=== PATIENT | male | born 2000 | race Hispanic/Latino ===

== ENCOUNTER 2025-01-20 19:40 | Emergency (ER) | payer SELFPAY ==
[2025-01-20 19:42] VITALS: BP 130/92; PULSE 91; RESP 15; TEMP 36.6; O2SAT 97; BMI 47.4
--- NOTE | 2025-01-20 21:21 | EDS_ITS ---
HPI History of Present Illness Chief Complaint: Headache Informant: patient Narrative Narrative: Formal Monegasque interpretation service used. 1 week history noting bumps behind his neck. Last day increasing pain unable to sleep on his back. He had a fever Monday. Does not see a doctor. No allergies. No past medical history. No history of similar. Last haircut was a month ago. Denies any bumps afterwards. PFSH PFSH Medical History no medical history Home Medications ?Medication ?Instructions ?Recorded ?Last Taken ?Type doxycycline monohydrate 100 mg 100 mg PO BID #20 CAPSU LES 01/20/25 Unknown Rx capsule ibuprofen 600 mg tablet 600 mg PO Q6H PRN PRN pain # 20 01/20/25 Unknown Rx TABLETS Allergy/AdvReac Type Severity Reaction Status Date / Time No Known Allergies Allergy Verified 01/20/25 19:42 Social History Smoking Status: Never smoker ROS ROS ED Constitutional Constitutional ED: Reports fever(s); Denies chills or sweats ENT ENT ED: Denies sore throat Cardiovascular Cardiovascular: Denies chest pain, leg edema, palpitations or racing heartbeat Respiratory/Chest Respiratory/Chest: Denies cough, dyspnea or dyspnea on exertion Gastrointestinal Gastrointestinal: Denies abdominal pain, diarrhea, nausea or vomiting Genitourinary Genitourinary ED: Denies dysuria, hematuria or urinary frequency Musculoskeletal Musculoskeletal: Denies back pain, extremity pain or neck pain Integumentary Reports abscess; Denies rash or wounds Neurologic Neurologic: Denies headache(s), paresthesias or weakness EXAM Physical Exam Const Vital Signs: 01/20/25 19:42 Temperature 97.9 F Temperature Source Temporal Pulse Rate 91 Respiratory Rate 15 Blood Pressure 130/92 H Blood Pressure Mean 104 Pulse Ox 97 Oxygen Delivery Method Room Air Positive well nourished and well developed General Appearance ED: well developed and NAD HEENT Reports moist mucous membranes HEENT Narrative: Posterior scalp lower hairline 5 areas fluctuant or nodules tender palpation on there is additional smaller 1 where he pointed superiorly this gentle expression there was exudates. No vesicular lesions. frontal scalp noted some irritation however no fluctuance or nodules. normocephalic Eyes General Eye ED: Yes normal appearance of both eyes Neck full ROM Chest Wall Chest: Negative for tenderness Resp normal respiratory effort and normal air movement Effort and Inspection: symmetric chest movement; Negative for respiratory distress Cardio regular rate, regular rhythm and no murmurs Peripheral Pulses: pulses 2+ throughout GI normal to inspection, nondistended, normoactive bowel sounds and non-tender Palpation: Negative for guarding or rebound tenderness present Extremity normal to inspection General Extremety ED: Negative for edema or tenderness General Extremity: Negative for edema Neuro oriented x3 and no sensory deficits noted Sensorium / Orientation: awake and alert Skin Skin Narrative: See above MDM MDM MDM Narrative Medical decision making narrative: Interventions / MDM: Differential diagnosis: Folliculitis, abscess Diagnosis considered but do not suspect: N/A My EKG interpretation: N/A Imaging independently reviewed and interpreted by myself: N/A External documents reviewed: N/A Test considered but not ordered:N/A ED course: Nontoxic vital stable. With interpretation service discussed folliculitis with small abscess. There is tenderness in the area. Discussed I&D for which he agreed. This will be set up. Procedure note: Verbal consent. Normal sterile conditions. ChloraPrep used for cleansing the skin. Total of 4 cc 1% lidocaine used for local anesthetic of 5 areas. Stab incision with 11 they performed in all 5 areas there was bloody drainage no exudates. Bleeding controlled with pressure. Dressing placed by myself. Patient Toller procedure well. Initial exudates on first expression. I&D has had no exudative drainage. I will start him on doxycycline. Motrin also sent to his pharmacy in [place] per request of patient. Re-evaluation: stable Disposition discussed with patient/family/significant other: Patient Case discussed with consulting clinician: N/A This note was generated with [email or web address] dictation software. It may contain incorrect words, spelling, and punctuation that were not noted in checking the note before signing. Discharge Plan Triage Chief Complaint: Headache ED Provider: Corey Mcintosh Dx/Rx/DC Orders Clinical Impression: Abscess of skin of neck Instructions: ED Abscess Incision And Drainage Prescriptions: New doxycycline monohydrate 100 mg capsule 100 mg PO BID Qty: 20 0RF ibuprofen 600 mg tablet 600 mg PO Q6H PRN PRN (Reason: pain) Qty: 20 0RF Primary Care Provider: Care Physician,No Primary Referrals: Care Physician,No Primary [Primary Care Provider] - Denisa Abad [facility], DO [[facility]] - 1-2 Weeks Activity Restrictions/Additional Instructions: Status post incision and drainage. Take antibiotic as prescribed. Use ibuprofen as needed. Print Language: Monegasque Disposition Disposition: Home, Self Care Discharge Date/Time: 01/20/25 22:58
[2025-01-20] MEDS: Ibuprofen 600 MG Tablet PO (21:26)
[2025-01-20] MEDS: Lidocaine 1% (20 ml mdv) 20 ML Vial INFILT (21:27)
[2025-01-20] MEDS: Doxycycline 100 MG CAPSULE PO (22:47)
== END 2025-01-20 22:58 | disposition home or self-care (01) ==
PROVIDERS: Emergency Provider Emergency Medicine; Referring Provider Emergency Medicine; Visit Provider Emergency Medicine
DX: L02.11 Cutaneous abscess of neck (principal)
CPT/HCPCS: 10060; 99285

== ENCOUNTER 2025-08-20 22:10 | Emergency (ER) | payer SELFPAY ==
[2025-08-20 22:14] VITALS: BP 171/76; PULSE 97; RESP 18; TEMP 36.6; O2SAT 98
[2025-08-20 22:45] LABS: Mucous, Urine 0 SEEN /hpf (<or=2+)
--- NOTE | 2025-08-20 22:45 | CT_ITS ---
PROCEDURE: ABDOMEN/PELVIS W IV CONT ONLY 08/21/2025 REASON FOR EXAM: RLQ PAIN TECHNIQUE: Procedure Code: [id number] Modality: CT Procedure: ABDOMEN/PELVIS W IV CONT ONLY Coronal and Sagittal reconstruction series were provided. CONTRAST: isovue 370 VOLUME: 100 mL One or more dose reduction techniques were used (e.g., Automated exposure control, adjustment of the mA and/or kV according to patient size, use of iterative reconstruction technique. RADIATION DOSE SUMMARY: CTDI Vol 13.71 mGy DLP :713.64 mGycm COMPARISON: none FINDINGS: The appendix appears unremarkable. No right iliac inflammatory changes. The examined ascending colon, the transverse colon, the descending colon & small bowel loops are unremarkable. The stomach is unremarkable. Average sized liver showing homogenous parenchymal attenuation with fatty changes. No dilated intra or extra-hepatic biliary tracts. Gall bladder showing no radiodense calculi. No abnormal mural thickening. Clear surrounding fat planes with no sizeable collections. Normal appearance of the pancreas with clear surrounding fat planes. The spleen, adrenal glands, aorta and IVC are unremarkable. Both kidneys are of average size and showing smooth outline with preserved parenchymal thickness. No renal calculi. No hydronephrosis. Under distension of the urinary bladder showing minimal uniform mural thickening with no obvious masses. No obvious masses related to the pelvic viscera. No ascites or free air. No obvious pathologically enlarged lymph nodes. Scanned osseous structures show no osseous destruction. Scanned lung bases show no obvious abnormalities. CT/Abdomen/Pelvis W IV Cont ONLY IMPRESSION: No obvious appendicitis. Urinary bladder minimal mural thickening. Advise clinical and laboratory correl ation to exclude the possibility of cystitis. Hepatic steatosis. Reading [facility] [address]
[2025-08-20 22:51] LABS: Color, Urine Yellow (Yellow); Glucose, Dipstick Normal (Normal); Ketone-Dipstick Negative (Negative); Leukocyte Esterase-Dipstick Negative /ul (Negative); Nitrite-Dipstick Negative (Negative); Occult Blood-Urine Negative /ul (Negative); Protein-Dipstick 30 mg/dl (Negative); Specific Gravity, Urine 1.020 (1.002-1.030); Urine Bilirubin Dipstick Negative (Negative)
[2025-08-20 22:52] LABS: Hematocrit 39.4 % (40-54); Hemoglobin 13.0 g/dL (13.0-16.5); Immature Granulocytes Count 0.050 X10^3/uL (0.0-0.0); Mean Corp Hgb Conc 33.0 g/dL (32-36); Mean Corpuscular Volume 89.3 fL (80-94); Mean Platelet Vol. 9.0 fl (6.2-12.0); NRBC Flagged by Analyzer 0 % (0-5); Platelet Count 314 K/mm3 (150-450); RBC Distribution Width CV 13.9 % (11.6-14.6); RBC Distribution Width SD 45.1 fl (35.1-43.9); Red Blood Count 4.41 M/mm3 (4.6-6.2); White Blood Count 11.8 K/mm3 (4.4-11.0)
--- NOTE | 2025-08-20 22:59 | EDS_ITS ---
HPI History of Present Illness Chief Complaint: Abd Pain Narrative Narrative: Chief complaint and HPI: 24-year-old male with no significant past medical history other than morbid obesity presents for evaluation of right lower quadrant abdominal pain. Patient is Azeri-speaking therefore official client delivery manager used. Onset of symptoms yesterday. States he had 1 episode of bright red blood with a bowel movement. He denies any fever, nausea, vomiting, diarrhea, constipation, dysuria. Has not taken anything for the pain. Review of systems: See HPI Medications: As listed on the chart Allergies: As listed on the chart PFSH: Per chart Vital signs: As listed on the chart. Reviewed. Physical exam: Gen: A&O x3, NAD Head: Normocephalic, atraumatic Eyes: No sclera icterus, conjunctiva clear ENT: Moist mucous membranes CV: RRR, no murmurs Resp: Lungs CTA BL, no w/r/c GI: Large body habitus, abd soft, non-distended, non-tender, no r/r/g Rectal: Normal external examination. No evidence of hemorrhoids or fissures. Normal tone and sensation. No masses, fluctuance, or tenderness. No pain out of proportion. Stool brown on gloved finger. : Significant tenderness Musc: Full ROM, no deformity Skin: Warm, dry Neuro: Alert, oriented, grossly intact, sensation intact Psych: Cooperative, appropriate mood and affect [facility] Medical History no medical history Home Medications ?Medication ?Instructions ?Recorded ?Last Taken ?Type NK 08/20/25 Unknown History Allergy/AdvReac Type Severity Reaction Status Date / Time No Known Allergies Allergy Verified 08/20/25 22:14 Social History Smoking Status: Never smoker EXAM Physical Exam Const Vital Signs: 08/20/25 22:14 08/21/25 00:23 Temperature 97.9 F Temperature Source Temporal Pulse Rate 97 79 Respiratory Rate 18 18 Blood Pressure 171/76 H 154/70 H Blood Pressure Mean 107 98 Pulse Ox 98 100 Oxygen Delivery Method Room Air MDM MDM MDM Narrative Medical decision making narrative: 24-year-old male with no significant past medical history other than morbid obesity presents for evaluation of right lower quadrant abdominal pain. Patient is Azeri-speaking therefore official client delivery manager used. Onset of symptoms yesterday. States he had 1 episode of bright red blood with a bowel movement. He denies any fever, nausea, vomiting, diarrhea, constipation, dysuria. Has not taken anything for the pain. Differential diagnosis includes but is not limited to appendicitis, colitis, diverticulosis, diverticulitis, GI bleed, gastroenteritis, UTI, urolithiasis. NS bolus, morphine, Zofran ordered for symptoms. Abdominal pain workup ordered including CT abdomen pelvis and stool culture. CBC with mild leukocytosis 11.8. No anemia. CMP relatively unremarkable except for mild transaminitis with an AST of 46 and ALT of 94. Patient not endorsing any right upper quadrant abdominal pain. He is not tender there on exam. No hyperbilirubinemia. Lipase unremarkable. UA negative for UTI.CT abdomen pelvis shows no appendicitis. Hepatic steatosis which corresponds with his weight as well as mild transaminitis. Urinary bladder minimal mural thickening. This point in time, no clear etiology to explain patient's symptoms. His stool occult was negative for blood. May be viral gastroenteritis. Follow-up with primary care physician. He confirmed understand the plan. Return precautions explained. Patient is able to discharge home. Impression: 1. Right lower quadrant abdominal pain Lab Data Labs: Laboratory Results - last 24 hr 08/20/25 22:39 WBC 11.8 H RBC 4.41 L Hgb 13.0 Hct 39.4 L MCV 89.3 MCH 29.5 MCHC 33.0 RDW Std Deviation 45.1 H RDW Coeff of Mesha 13.9 Plt Count 314 MPV 9.0 Immature Gran % (Auto) 0.400 Neut % (Auto) 63.9 Lymph % (Auto) 24.1 Dent % (Auto) 9.2 Eos % (Auto) 1.9 Baso % (Auto) 0.5 Absolute Neuts (auto) 7.5 Absolute Lymphs (auto) 2.83 Nucleated RBC % 0 Sodium 138 Potassium 4.1 Chloride 103 Carbon Dioxide 23.2 Anion Gap 12 BUN 12 Creatinine 0.87 Est GFR (MDRD) Non-Af 125 BUN/Creatinine Ratio 13.2 Glucose 107 H Calcium 9.1 Total Bilirubin 0.25 AST 46 H ALT 94 H Alkaline Phosphatase 78 Total Protein 7.8 Albumin 3.8 Globulin 4.0 Albumin/Globulin Ratio 1.0 Lipase 27 Urine Color Yellow Urine Clarity Clear Urine pH 6.0 Ur Specific Campbell 1.020 Urine Protein 30 H Urine Glucose (UA) Normal Urine Ketones Negative Urine Occult Blood Negative Urine Nitrite Negative Urine Bilirubin Negative Urine Urobilinogen Normal Ur Leukocyte Esterase Negative Urine RBC 0-5 SEEN Urine WBC 0-5 SEEN Ur Squamous Epith Cells 0-5 SEEN Urine Bacteria RARE Urine Mucus 0 SEEN Radiography Diagnostic Testing: Clinical Impression(s) from Imaging Studies Abdomen/Pelvis CT 08/20/25 22:45 IMPRESSION: No obvious appendicitis. Urinary bladder minimal mural thickening. Advise clinical and laboratory correlation to exclude the possibility of cystitis. Hepatic steatosis. Reading Location: [place] [address] Discharge Plan Triage Chief Complaint: Abd Pain ED Provider: Donald Dudley Dx/Rx/DC Orders Prescriptions: No Action NK Primary Care Provider: Care Physician,No Primary Referrals: Care Physician,No Primary [Primary Care Provider, Medical] Print Language: Azeri
[2025-08-20 23:06] LABS: AST(SGOT) 46 U/L (<=37); Alanine Aminotransfer ALT/SGPT 94 U/L (<=46); Albumin, Serum 3.8 g/dL (3.5-5.0); Alkaline Phosphatase 78 U/L (40-129); Anion Gap 12 (5-15); BUN 12 mg/dL (4-19); BUN/Creat Ratio 13.2 RATIO (10-20); Calcium,Total 9.1 mg/dL (7.6-11.0); Carbon Dioxide 23.2 mmol/L (21.0-32.0); Chloride 103 mmol/L (98-108); Globulin 4.0 g/dL (2.2-4.2); Glucose 107 mg/dL (70-99); Lipase 27 U/L (13-75); Potassium 4.1 mmol/L (3.3-5.1); Red Blood Cells-Urine 0-5 SEEN /hpf (0-5); Squamous Epithelial Cells - UA 0-5 SEEN /hpf (0-5)
[2025-08-20 23:13] VITALS: BMI 55.8
[2025-08-20] MEDS: 0.9% Normal Saline (1000mL) 1,000 ML 999 ML IV (23:13)
[2025-08-21 00:23] VITALS: BP 154/70; PULSE 79; RESP 18; O2SAT 100
[2025-08-21 01:00] VITALS: BP 154/70; PULSE 79; RESP 18; TEMP 36.8; O2SAT 100
== END 2025-08-21 01:01 | disposition home or self-care (01) ==
PROVIDERS: Emergency Provider Surgery; Visit Provider Surgery
DX: R10.31 Right lower quadrant pain (principal); E66.01 Morbid (severe) obesity due to excess calories; K76.0 Fatty (change of) liver, not elsewhere classified; N32.89 Other specified disorders of bladder
CPT/HCPCS: 74177; 80053; 81001; 82274; 83690; 85025; 96361; 96374; 96375; 99283; Q9967; A4216; J2405